=== PATIENT | male | born 1960 ===

== ENCOUNTER 2016-12-09 07:44 | Emergency (ER) | payer MEDICAID, OTHER ==
[2016-12-09 07:45] VITALS: BMI 28.0
[2016-12-09 08:01] VITALS: RESP 16; TEMP 98; O2SAT 99
--- NOTE | 2016-12-09 08:01 | ED PDOC ---
Arrival/HPI - General Chief Complaint: ENT Problem Time Seen by Provider: 12/09/16 07:51 Historian: Patient - History of Present Illness Time/Duration: 1 week Symptom Onset: Gradual Symptom Course: Worsening Quality: Other (Raw) Severity Level: Moderate Associated Symptoms (Text): 12/09/16 07:58 Patient complains of approximately one week history of a severe sore throat with radiation to his right ear. There is a mild nonproductive cough. Patient feels feverish with chills. No travel or exposure. He works an overnight shift as a van driver. Past Medical History - Infectious Disease Hx of Infectious Diseases: None - Tetanus Immunization Tetanus Immunization: Unknown - Cardiac Hx Hyperlipemia: Yes - Pulmonary Hx Respiratory Disorders: No - Neurological Hx Neurological Disorder: No - HEENT Hx HEENT Disorder: No - Renal Hx Renal Disorder: No - Endocrine/Metabolic Hx Diabetes Mellitus Type 2: Yes - Hematological/Oncological Hx Blood Disorders: No - Integumentary Hx Dermatological Disorder: No - Musculoskeletal/Rheumatological Hx Musculoskeletal Disorders: No - Gastrointestinal Hx Gastrointestinal Disorders: No - Genitourinary/Gynecological Hx Genitourinary Disorders: No - Psychiatric Hx Psychophysiologic Disorder: No Hx Substance Use: No - Surgical History Hx Coronary Stent: Yes (x1) Hx Open Heart Surgery: Yes (1 stent 9yrs ago) Other/Comment: right ear - Anesthesia Hx Anesthesia: No - Suicidal Assessment Feels Threatened In Home Enviroment: No Family/Social History - Physician Review Nursing Documentation Reviewed: Yes Family/Social History: Unknown Family HX Smoking Status: Never Smoked Hx Alcohol Use: No Hx Substance Use: No Hx Substance Use Treatment: No Allergies/Home Meds Allergies/Adverse Reactions: Allergies No Known Allergies Allergy (Verified 12/09/16 07:52) Home Medications: Home Meds Medication Instructions Recorded Confirmed Losartan [Cozaar] 50 mg PO DAILY 06/14/13 12/09/16 Metformin HCl [Metformin] 1,000 mg PO BID 06/14/13 12/09/16 glyBURIDE [Glynase Pres-Tab] 4 mg PO BID 06/14/13 12/09/16 Atorvastatin [Lipitor] 80 mg PO DAILY 12/09/16 12/09/16 Review of Systems - Physician Review All systems were reviewed & negative as marked: Yes - Review of Systems Constitutional: Fevers Respiratory: Cough. absent: SOB, Sputum, Wheezing Cardiovascular: absent: Chest Pain Gastrointestinal: absent: Abdominal Pain, Diarrhea, Vomiting Neurological: Headache. absent: Dizziness, Focal Weakness Physical Exam Vital Signs Temp Pulse Resp BP Pulse Ox 12/09/16 07:51 98.0 F 101 H 16 161/77 H 99 Temperature: Afebrile Blood Pressure: Hypertensive Pulse: Regular Respiratory Rate: Normal Appearance: Positive for: Well-Appearing, Non-Toxic, Comfortable Pain Distress: None Mental Status: Positive for: Alert and Oriented X 3 - Systems Exam Head: Present: Atraumatic, Normocephalic Pupils: Present: PERRL Extroacular Muscles: Present: EOMI Conjunctiva: Present: Normal Ears: Present: Normal Canal, Other (Bilateral tympanic membranes irregular and retracted but no erythema or discharge). No: Erythema, TM Bulging, Fluid, TM Perf Mouth: Present: Moist Mucous Membranes Pharnyx: Present: ERYTHEMA. No: EXUDATE, TONSILS ENLARGED, Peritonsilar Swelling, Uvular Deviation, Muffled/Hoarse Voice, Soft Palate/Uvular Edema Nose (Internal): Present: Normal Inspection Neck: Present: Normal Range of Motion. No: MIDLINE TENDERNESS, Paraspinal Tenderness Respiratory/Chest: Present: Clear to Auscultation, Good Air Exchange. No: Respiratory Distress, Accessory Muscle Use Cardiovascular: Present: Regular Rate and Rhythm, Normal S1, S2. No: Murmurs Neurological: Present: GCS=15, CN II-XII Intact, Speech Normal, Motor Func Grossly Intact Skin: Present: Warm, Dry, Normal Color. No: Rashes Disposition/Present on Arrival - Present on Arrival Any Indicators Present on Arrival: No History of DVT/PE: No History of Uncontrolled Diabetes: No Urinary Catheter: No History of Decub. Ulcer: No History Surgical Site Infection Following: None - Disposition Have Diagnosis and Disposition been Completed?: Yes Diagnosis: Upper respiratory infection, Pharyngitis, Hyperglycemia Disposition: HOME/ ROUTINE Disposition Time: 08:00 Patient Plan: Discharge Condition: GOOD Discharge Instructions (ExitCare): Upper Respiratory Infection (ED), Pharyngitis (ED) Additional Instructions: Tylenol or Advil, Cepacol or Cepastat as directed on bottle as needed. Symptomatic treatment. Follow-up with PMD. Follow-up in the ER as needed. Prescriptions: Amoxicillin [Amoxil 250 mg Cap] 250 mg PO TID #21 cap Forms: [facility] ([place]i), WORK NOTE
[2016-12-09 08:07] VITALS: BP 129/67; PULSE 87
== END 2016-12-09 08:08 | disposition home or self-care (01) ==
LOC: ED 07:44
DX: E11.65 Type 2 diabetes mellitus with hyperglycemia (principal); J02.9 Acute pharyngitis, unspecified; J06.9 Acute upper respiratory infection, unspecified